=== PATIENT | female | born 1995 | race Caucasian/White ===

== ENCOUNTER 2019-04-01 10:13 | Emergency (ER) | payer BC ==
--- NOTE | 2019-04-01 12:54 | EDM.PDOC ---
ED HPI GENERAL MEDICAL PROBLEM - General Chief Complaint: Gastrointestinal Problem Stated Complaint: ABDOMINAL PAIN Time Seen by Provider: 04/01/19 11:12 Source of Information: Reports: Patient History Limitations: Reports: No Limitations - History of Present Illness INITIAL COMMENTS - FREE TEXT/NARRATIVE: Ms. Barker is a very pleasant 24-year-old woman with a past medical history significant for GERD, who states that she saw her PCP on 03/24/2019 with a complaint of chest and epigastric pain. She was prescribed pantoprazole, which she states helped after taking it for 2 days. She then developed mid and lower abdominal pain around 03/27/2019. She describes the pain is sharp in character. It comes and goes, lasting 1-2 minutes, recurring 3-5 times per day. It is worse if she is standing or sitting, and was worse last night. She also reports constant left flank pain for the last 2 days. She denies associated fever, nausea, vomiting, constipation, or diarrhea. She denies having dysuria, but states that she has had urinary frequency for about 7 days, and urinary urgency for about 3 days. No recent vaginal bleeding. Her LMP was . She is sexually active, but does not use control. The patient's PCP is Dr. Helga Alva. Abdomen Pain Score (Numeric/FACES): 8 - Related Data Allergies Allergy/AdvReac Type Severity Reaction Status Date / Time No Known Allergies Allergy Verified 04/01/19 10:50 Home Meds: Home Meds Pantoprazole [ProTONIX] 40 mg PO BID 04/01/19 [History] Past Medical History Gastrointestinal History: Reports: GERD - Past Surgical History HEENT Surgical History: Reports: Oral Surgery (wisdom teeth extracted) Musculoskeletal Surgical History: Reports: Arthroscopic Knee (right), Other ( See Below) (Open left knee surgery) Social & Family History - Tobacco Use Smoking Status *Q: Never Smoker Second Hand Smoke Exposure: No - Caffeine Use Caffeine Use: Reports: None - Alcohol Use Alcohol Use History: Yes Alcohol Use Frequency: Socially - Recreational Drug Use Recreational Drug Use: No - Living Situation & Occupation Living situation: Reports: Single, Other (with a friend) Occupation: Student ([employer]) ED ROS GENERAL - Review of Systems Review Of Systems: ROS reveals no pertinent complaints other than HPI. ED EXAM, GI/ABD - Physical Exam Exam: See Below Exam Limited By: No Limitations General Appearance: Alert, WD/WN, No Apparent Distress Eyes: Bilateral: Normal Appearance, EOMI Ears: Normal External Exam, Hearing Grossly Normal Nose: Normal Inspection Throat/Mouth: Normal Inspection, Normal Lips, Normal Voice, No Airway Compromise Head: Atraumatic, Normocephalic Neck: Normal Inspection, Full Range of Motion Respiratory/Chest: No Respiratory Distress, Lungs Clear, Normal Breath Sounds, No Accessory Muscle Use Cardiovascular: Normal Peripheral Pulses, Regular Rate, Rhythm, No Edema, No Gallop, No JVD, No Murmur, No Rub GI/Abdominal Exam: Normal Bowel Sounds, Soft, No Organomegaly, No Distention, No Abnormal Bruit, No Mass, Tender (Left pelvis only. Essentially nontender elsewhere.) (Female) Exam: Deferred Rectal (Female) Exam: Deferred Back Exam: Normal Inspection, Full Range of Motion. No: CVA Tenderness (L), CVA Tenderness (R) Extremities: Normal Inspection, Normal Range of Motion, No Pedal Edema, Normal Capillary Refill Neurological: Alert, Oriented, Normal Cognition, No Motor/Sensory Deficits Psychiatric: Normal Affect Skin Exam: Warm, Dry, Intact, Normal Color, No Rash Course - Vital Signs Last Recorded V/S: Last Vital Signs Temp 37.4 C 04/01/19 10:52 Pulse 105 H 04/01/19 10:52 Resp 18 04/01/19 10:52 BP 120/93 H 04/01/19 10:52 Pulse Ox 100 04/01/19 10:52 - Orders/Labs/Meds Labs: Laboratory Tests 04/01/19 04/01/19 Range/Units 11:14 11:14 Urine Color Yellow (Yellow) Urine Appearance Clear (Clear) Urine pH 6.0 (5.0-8.0) Ur Specific [place] 1.025 (1.005-1.030) Urine Protein 2+ H (Negative) Urine Glucose (UA) Negative (Negative) Urine Ketones Trace H (Negative) Urine Occult Blood Trace-lysed H (Negative) Urine Nitrite Negative (Negative) Urine Bilirubin Negative (Negative) Urine Urobilinogen 0.2 (0.2-1.0) Ur Leukocyte Esterase Negative (Negative) Urine RBC 0-5 (0-5) /hpf Urine WBC Not seen (0-5) /hpf Ur Squamous Epith Cells Not seen (0-5) /hpf Urine Bacteria Not seen (FEW) /hpf Urine Mucus Moderate H (FEW) /hpf Urine HCG, Qual Negative (NEGATIVE) - Re-Assessments/Exams Free Text/Narrative Re-Assessment/Exam: 04/01/19 12:47 The patient's urinalysis is unremarkable. Her urine test is negative. With a negative urinalysis and test, and given that she is tender only in her left pelvis, I suspect that she is suffering from an uncomplicated ovarian cyst. Clinically, I do not suspect an intrapelvic hemorrhagic cyst, therefore I am not recommending a pelvic ultrasound, as I don't believe it would change our management, however, I did offer to perform an ultrasound if the patient felt strongly. She does not, and declined an ultrasound. The patient may safely be discharged home. I recommending [id number] ibuprofen. Departure - Departure Time of Disposition: 12:54 Disposition: Home, Self-Care 01 Condition: Good Clinical Impression: Ruptured ovarian cyst - Discharge Information *PRESCRIPTION DRUG MONITORING PROGRAM REVIEWED*: Not Applicable *COPY OF PRESCRIPTION DRUG MONITORING REPORT IN PATIENT VINCENT: Not Applicable Instructions: Ovarian Cyst, [id number] Referrals: Helga Alva MD [Primary Care Provider] - Forms: ED Department Discharge Additional Instructions: You were seen in the emergency room after developing mid and lower abdominal pain. Workup in the ER included a urinalysis and a urine test, both of which returned unremarkable. You do not have a urinary tract infection, and you are not . Based on your history, physical exam, and ER tests, you are most likely suffering from a left-sided ruptured ovarian cyst. As discussed, the diagnosis of a ruptured ovarian cyst is confirmed by ultrasound, however, an ultrasound would not likely change your management. An ultrasound was offered, but declined. We recommend that you take [id number] ibuprofen, 2-3 tablets (400-600 mg) every 8 hours, with food, as needed for discomfort. If your pain persists, but does not worsen, please follow-up with your PCP, Dr. Helga Alva. If your pain worsens, or if you develop new symptoms, such as lightheadedness or increasing abdominal girth, please return to the ER for reevaluation.
== END 2019-04-01 13:11 | disposition home or self-care (01) ==
LOC: JD.ED 10:13
DX: N83.202 Unspecified ovarian cyst, left side (principal); K21.9 Gastro-esophageal reflux disease without esophagitis; Z79.899 Other long term (current) drug therapy
CPT/HCPCS: 81001; 81025; 99282; 99284